=== PATIENT | male | born 1975 | race African-American/Black ===

== ENCOUNTER 2017-06-04 13:43 | Emergency (ER) | payer BC, OTHER ==
[2017-06-04 13:50] VITALS: BMI 28.3
--- NOTE | 2017-06-04 13:57 | PDOC ---
History of Present Illness - General Chief Complaint: Chest Pain Stated Complaint: chest discomfort Time Seen by Provider: 06/04/17 13:55 - History of Present Illness Initial Comments: 06/04/17 14:52 Chief complaint: Respiratory symptoms and body aches History of present illness: For about a week, the patient has had chest congestion, nonproductive cough, and body aches, primarily in the shoulders, anterior and posterior chest, rib cage bilaterally, and back. Review of systems: Denies fever/chills, URI symptoms, sore throat, shortness of breath, abdominal pain, nausea, vomiting, diarrhea, visual or focal neurologic symptoms, unsteadiness of gait, urinary tract symptoms, hematemesis, melena, bloody stool. Admits mild anorexia, although he is eating and drinking. Remainder systems reviewed and found to be negative Past medical history: Hodgkin's lymphoma at age 13, MOPP therapy. Prolonged hospital course, but recovered and in remission since then. Followed at [facility]. Multiple orthopedic surgeries of the left shoulder, both knees, thought to be the result chemotherapy. 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 Smokes cigars and marijuana. No intravenous drugs. No alcohol. No cigarettes. Family history: Reviewed and noncontributory including early coronary artery disease, metabolic disease including diabetes, blood dyscrasias, or cancer Physical exam: Well-developed well-nourished, no acute distress, cheerful and cooperative. Alert and oriented 3 PERRLA, fundi benign, ENT clear Neck supple without bruit mass or nodes Chest clear to P&A, full breath sounds bilaterally, no wheezes rales or rhonchi. No rib cage or chest wall tenderness or deformity CV S1 and S2 distant without murmur rub or gallop pulses full and symmetric no JVD or edema no bruits Abdomen soft nontender without mass or organomegaly Neurological C2 to 12 intact. Strength full and symmetric. No focal sensory or motor deficits. Gait stable and unimpaired. Extremities no CCE Skin clear, no rash, adequate turgor and wet mucous membranes Impression: Most likely viral syndrome/flu. Mild. Rule out pneumonia. Rule out recurrent chest disease from tumor/lymphoma. Rule out occult coronary syndrome. Plan: Chest x-ray, EKG and enzymes, CBC and chemistries, urinalysis, observe. Further treatment depending on results. Past History - Past Medical History Allergies/Adverse Reactions: Allergies Allergy/AdvReac Type Severity Reaction Status Date / Time No Known Allergies Allergy Verified 06/04/17 13:44 Home Medications: Ambulatory Orders NK [No Known Home Medication] 06/04/17 Cancer: Yes (NON HODGKINS LYMPHOMIA) COPD: Yes Disorders: No Liver Disease: No Thyroid Disease: No - Surgical History Appendectomy: Yes Orthopedic Surgery: Yes (BILATERAL ARTHROSCOPY) - Suicide/Smoking/Psychosocial Hx Smoking History: Former smoker Have you smoked in the past 12 months: Yes Number of Cigarettes Smoked Daily: 0 If you are a former smoker, when did you quit?: 15YRS AGO Information on smoking cessation initiated: No 'Breaking Loose' booklet given: 04/01/14 Hx Alcohol Use: No Drug/Substance Use Hx: Yes Substance Use Type: Marijuana *Physical Exam - Vital Signs Last Vital Signs Temp Pulse Resp BP Pulse Ox 0/0 06/04/17 13:44 ED Treatment Course - LABORATORY CBC & Chemistry Diagram: 06/04/17 14:21 06/04/17 14:21 Medical Decision Making - Medical Decision Making 06/04/17 16:09 EKG, chest x-ray, labs including cardiac enzymes are negative Patient appears well, in no distress, nontoxic Probable mild viral syndrome. Rest, Tylenol, and follow-up as needed. *DC/Admit/Observation/Transfer Diagnosis at time of Disposition: Viral syndrome - Discharge Dispostion Disposition: HOME Condition at time of disposition: Stable Admit: No - Referrals Referrals: Dominic Garcia MD [Staff Physician] - - Patient Instructions Printed Discharge Instructions: DI for Viral Syndrome Additional Instructions: Rest, fluids for adequate hydration, good nutrition, adequate sleep. Return to ER for further evaluation if condition worsens, especially if there is fever, vomiting, diarrhea, or difficulty breathing. Otherwise follow-up with primary physician as directed. Start to see a oncologist for routine follow-up. - Post Discharge Activity Forms/Work/School Notes: Back to Work
[2017-06-04 14:10] VITALS: TEMP 98.3
[2017-06-04 14:34] LABS: BASO % 2.3 % (0-2.0); EOS % 7.2 % (0-4.5); HEMATOCRIT 38.8 % (35.4-49); HEMOGLOBIN 13.4 GM/dl (11.7-16.9); LYMPH % 39.4 % (8-40); MCH 31.9 pg (25.7-33.7); MCHC 34.5 g/dl (32.0-35.9); MEAN CELL VOLUME 92.3 fl (80-96); MEAN PLT VOLUME 6.4 fl (7.5-11.1); MONO % 6.4 % (3.8-10.2); NEUT % 44.7 % (42.8-82.8); PLATELET COUNT 333 K/MM3 (134-434); RDW 12.9 % (11.9-15.9); WHITE BLOOD COUNT 4.8 K/mm3 (4.0-10.8)
[2017-06-04 14:47] LABS: ALBUMIN 3.9 g/dl (3.5-5.0); ALK PHOS 86 U/L (32-92); ANION GAP 3 (8-16); BLOOD UREA NITROGEN 17 mg/dl (7-18); CALCIUM 8.7 mg/dl (8.4-10.2); CHLORIDE 106 mmol/L (98-107); CO2 24 mmol/L (22-28); CREATININE 0.9 mg/dl (0.6-1.3); GLUCOSE,RANDOM 87 mg/dl (74-106); POTASSIUM 4.1 mmol/L (3.5-5.1); SGOT/AST 31 U/L (10-42); SGPT/ALT 25 U/L (10-40); SODIUM 133 mmol/L (136-145); TOT PROT 6.5 g/dl (6.4-8.3)
[2017-06-04 15:17] LABS: BILIRUBIN,TOTAL < 0.5 mg/dl (0.2-1.0)
[2017-06-04 15:47] VITALS: BP 128/88; PULSE 66
--- NOTE | 2017-06-05 12:58 | EKG ---
Test Reason : Blood Pressure : / mmHG Vent. Rate : 067 BPM Atrial Rate : 067 BPM P-R Int : 176 ms QRS Dur : 084 ms QT Int : 390 ms P-R-T Axes : 058 071 044 degrees QTc Int : 412 ms NORMAL SINUS RHYTHM MINIMAL VOLTAGE CRITERIA FOR LVH, MAY BE NORMAL VARIANT BORDERLINE ECG WHEN COMPARED WITH ECG OF 12-SEP-2015 10:39, NO SIGNIFICANT CHANGE WAS FOUND Confirmed by KEILA ZUNIGA MD ([id number]) on 06/05/2017 12:58:01 PM Referred By: MCKINLEY LOPEZ Confirmed By:KEILA ZUNIGA MD
== END 2017-06-04 16:15 | disposition home or self-care (01) ==
LOC: FER 13:43
DX: B34.9 Viral infection, unspecified (principal); C85.90 Non-Hodgkin lymphoma, unspecified, unspecified site; Z87.891 Personal history of nicotine dependence; J44.9 Chronic obstructive pulmonary disease, unspecified
CPT/HCPCS: 36415; 71045-TC-FY; 80053; 82550; 82553; 84484; 85025; 93005; 99285-25

== ENCOUNTER 2018-04-22 08:02 | Emergency (ER) | payer BC, OTHER ==
[2018-04-22 08:11] VITALS: BP 110/66; PULSE 95; TEMP 98.6; BMI 26.4
--- NOTE | 2018-04-22 08:18 | PDOC ---
History of Present Illness - General Chief Complaint: Cold Symptoms Stated Complaint: COLD SYMPTOMS Time Seen by Provider: 04/22/18 08:17 History Source: Patient Exam Limitations: No Limitations - History of Present Illness Initial Comments: 04/22/18 08:42 Pt is a 42 y/o M who presents to the ED with three days of body aches, cough, sore throat, and nausea. Pt states that on Friday he felt like he had a fever and that it was painful to swallow. He was using some over the counter medicine (cannot remember the name) with some relief. Has not taken Tylenol or Motrin today. Denies SOB, difficulty breathing, chest pain, vomiting, diarrhea. Past History - Travel Traveled outside of the country in the last 30 days: No Close contact w/someone who was outside of country & ill: No - Past Medical History Allergies/Adverse Reactions: Allergies Allergy/AdvReac Type Severity Reaction Status Date / Time No Known Allergies Allergy Verified 04/22/18 08:29 Home Medications: Ambulatory Orders Ibuprofen 800 mg PO TID #30 tablet 04/22/18 Ondansetron [Zofran Odt -] 4 mg SL TID #10 od.tablet 04/22/18 Cancer: Yes (NON HODGKINS LYMPHOMIA) COPD: Yes Disorders: No Liver Disease: No Thyroid Disease: No - Surgical History Appendectomy: Yes Orthopedic Surgery: Yes (BILATERAL ARTHROSCOPY) - Immunization History Immunization Up to Date: No - Suicide/Smoking/Psychosocial Hx Smoking History: Never smoked Have you smoked in the past 12 months: No Number of Cigarettes Smoked Daily: 0 If you are a former smoker, when did you quit?: 15YRS AGO Information on smoking cessation initiated: No 'Breaking Loose' booklet given: 04/01/14 Hx Alcohol Use: No Drug/Substance Use Hx: Yes Substance Use Type: Marijuana Review of Systems - Review of Systems Able to Perform ROS?: Yes Comments:: 04/22/18 08:18 CONSTITUTIONAL: Present: Fever, chills, body aches Absent: diaphoresis, generalized weakness, malaise, loss of appetite HEENT: Present: rhinorrhea, nasal congestion, throat pain. Absent: difficulty swallowing, mouth swelling, ear pain, eye pain, visual Changes CARDIOVASCULAR: Absent: chest pain, loss of consciousness, palpitations, irregular heart rate, peripheral edema RESPIRATORY: Present: Cough Absent: shortness of breath, dyspnea with exertion, orthopnea, wheezing, stridor, hemoptysis GASTROINTESTINAL: Present: nausea Absent: abdominal pain, abdominal distension, nausea, vomiting, diarrhea, constipation, melena, hematochezia SKIN: Absent: rash, itching, pallor NEUROLOGIC: Absent: headache, focal weakness or paresthesias, dizziness, unsteady gait, seizure, mental status changes, bladder or bowel incontinence Is the patient limited Uzbek proficient: No *Physical Exam - Vital Signs Last Vital Signs Temp Pulse Resp BP Pulse Ox 98.6 F 95 H 18 110/66 99 04/22/18 08:08 04/22/18 08:08 04/22/18 08:08 04/22/18 08:08 04/22/18 08:08 - Physical Exam Comments: 04/22/18 08:18 GENERAL: Well developed, well nourished. Awake and alert. No acute distress. HEENT: Normocephalic, atraumatic. PERRLA, EOMI. No conjunctival pallor. Sclera are non- icteric. Moist mucous membranes. Oropharynx is clear. NECK: Supple. Full ROM. No JVD. Carotid pulses 2+ and symmetric, without bruits. No thyromegaly. No lymphadenopathy. CARDIOVASCULAR: Regular rate and rhythm. No murmurs, rubs, or gallops. Distal pulses are 2+ and symmetric. PULMONARY: No evidence of respiratory distress. Lungs clear to auscultation bilaterally. No wheezing, rales or rhonchi. ABDOMINAL: Soft. Non-tender. Non-distended. No rebound or guarding. No organomegaly. Normoactive bowel sounds. MUSCULOSKELETAL Normal range of motion at all joints. No bony deformities or tenderness. No CVA tenderness. EXTREMITIES: No cyanosis. No clubbing. No edema. No calf tenderness. SKIN: Warm and dry. Normal capillary refill. No rashes. No jaundice. NEUROLOGICAL: Alert, awake, appropriate. Cranial nerves 2-12 intact. No deficits to light touch and temperature in face, upper extremities and lower extremities. No motor deficits in the in face, upper extremities and lower extremities. Normoreflexic in the upper and lower extremities. Normal speech. Toes are down- going bilaterally. Gait is normal without ataxia. PSYCHIATRIC: Cooperative. Good eye contact. Appropriate mood and affect. Moderate Sedation - Procedure Monitoring Vital Signs: Procedure Monitoring Vital Signs Temperature 98.6 F 04/22/18 08:08 Pulse Rate 95 H 04/22/18 08:08 Respiratory Rate 18 04/22/18 08:08 Blood Pressure 110/66 04/22/18 08:08 O2 Sat by Pulse Oximetry (%) 99 04/22/18 08:08 Medical Decision Making - Medical Decision Making 04/22/18 09:22 Pt is a 42 y/o M who presents to the ED with 3 days of cold like symptoms -On exam, minimal erythema posteriorly -Given sore throat, reported fevers, and nausea, rapid strep ordered; and negative -Most likely a URI -DC home with supportive treatment -I discussed the physical exam findings, ancillary test results and final diagnoses with the patient. I answered all of the patient's questions. The patient was satisfied with the care received and felt comfortable with the discharge plan and treatment plan. The Patient agrees to follow up with the primary care physician/specialist within 24-72 hours. Return precautions were given. *DC/Admit/Observation/Transfer Diagnosis at time of Disposition: Viral syndrome - Discharge Dispostion Disposition: HOME Condition at time of disposition: Stable - Referrals Referrals: Lit Locke MD [Primary Care Provider] - - Patient Instructions Printed Discharge Instructions: DI for Viral Upper Respiratory Infection -- Adult Additional Instructions: You have an upper respiratory infection, or the common cold. Your strep testing was negative today. Please take Motrin 800 mg every 8 hours as needed for pain not to exceed 3000 mg a day. Drink plenty of fluids. Cough drops and warm tea may help your symptoms as well. Please follow up with her primary care doctor this week. Return to the emergency department if you have difficulty breathing, shortness of breath, worsening pain, nausea, vomiting or if you have any changes in your symptoms. - Post Discharge Activity Forms/Work/School Notes: Back to Work
[2018-04-22] MEDS ORDERED: ONDANSETRON *ODT* 4 MG TABLET SL ONE (08:42)
[2018-04-22] MEDS ORDERED: IBUPROFEN 400 MG TABLET (FP) PO ONE ×2 (08:42→08:51)
[2018-04-22] MEDS ORDERED: ONDANSETRON *ODT* 4 MG TABLET ONE (08:51)
== END 2018-04-22 09:28 | disposition home or self-care (01) ==
LOC: JERFT 08:02
DX: B34.9 Viral infection, unspecified (principal); Z87.891 Personal history of nicotine dependence; J44.9 Chronic obstructive pulmonary disease, unspecified
CPT/HCPCS: 87070; 87880; 99281-25; Q0162

== ENCOUNTER 2018-07-31 00:31 | Emergency (ER) | payer SELFPAY ==
[2018-07-31 00:48] VITALS: BP 134/96; PULSE 74; TEMP 98; BMI 26.4
[2018-07-31] MEDS ORDERED: DIPHTH,PERTUSS(ACELL),TET 0.5 ML DISP.SYRIN IM ONE ×2 (00:56→01:03)
[2018-07-31] MEDS ORDERED: IBUPROFEN 600 MG TABLET (FP) PO ONE ×2 (00:56→01:03)
--- NOTE | 2018-07-31 01:01 | PDOC ---
History of Present Illness - General Chief Complaint: Pain Stated Complaint: JAW PAIN/BACK STIFNESS Time Seen by Provider: 07/31/18 00:55 History Source: Patient Exam Limitations: No Limitations - History of Present Illness Initial Comments: 07/31/18 00:57 This is a 43-year-old male who comes in complaining of pain in his left jaw. Patient had injured himself several months ago when he was moving from 40 [place]. Patient did not get a tetanus shot at this time so was concerned that the pain in his jaw may be tetanus. So patient is here for a tetanus shot as well as to have his jaw evaluated. Patient said that he is jaw popped when he was opening his mouth and now he has pain over the area of the TMJ area patient denies any other complaints. The pain in the jaws only on the left side. Allergies: as per nursing notes Past Medical History: none Social history: Lives with family. No smoking. No alcohol. No illicit drugs. Surgical history: None General: No fevers or chills, no weakness, no weight loss HEENT: No change in vision. No sore throat,. No ear pain, left jaw pain CardioVascular: no chest discomfort. No shortness of breath Respiratory:No cough, or wheezing. Gastrointestinal: no nausea, vomiting, diarrhea or constipation, No rectal bleeding Genitourinary: No dysuria, hematuria, or frequency Musculoskeletal: No joint or muscle pain or swelling Neurologic: No headache, vertigo, dizziness or loss of consciousness Psychiatric: nor depression Skin: No rashes or easy bruising Endocrine: no increased thirst or abnormal weight change Allergic: no skin or latex allergy All other systems reviewed and normal GENERAL: The patient is awake, alert, and fully oriented, in no acute distress. HEAD: Normal with no signs of trauma. JAW: There is tenderness on very. Patient over the left TMJ area. Patient is able to open and close his mouth without the clicking or catching of the TMJ but it is uncomfortable Otherwise there is no evidence of an infection or inflammatory process anywhere else EYES: Pupils equal, round and reactive to light, extraocular movements intact, sclera anicteric, conjunctiva clear. EXTREMITIES:atraumatic, Normal range of motion, no edema. NEUROLOGICAL: Normal speech, normal gait. PSYCH: Normal mood, normal affect. SKIN: Warm, Dry, normal turgor, no rashes or lesions noted. Assessment and plan: This is a 43-year-old male with left TMJ pain. Patient was concerned he may be tetanus. Patient was reassured that it is not tetanus he was given a tetanus shot and a ibuprofen and discharged home patient will follow -up with his primary care doctor Past History - Past Medical History Allergies/Adverse Reactions: Allergies Allergy/AdvReac Type Severity Reaction Status Date / Time No Known Allergies Allergy Verified 04/22/18 08:29 Home Medications: Ambulatory Orders NK [No Known Home Medication] 07/31/18 Cancer: Yes (NON HODGKINS LYMPHOMIA) COPD: Yes Disorders: No Liver Disease: No Thyroid Disease: No - Surgical History Appendectomy: Yes Orthopedic Surgery: Yes (BILATERAL ARTHROSCOPY) - Immunization History Immunization Up to Date: No - Suicide/Smoking/Psychosocial Hx Smoking History: Current every day smoker Have you smoked in the past 12 months: Yes Number of Cigarettes Smoked Daily: 0 If you are a former smoker, when did you quit?: 15YRS AGO Information on smoking cessation initiated: Yes 'Breaking Loose' booklet given: 04/01/14 Hx Alcohol Use: No Drug/Substance Use Hx: Yes Substance Use Type: Marijuana *Physical Exam - Vital Signs Last Vital Signs Temp Pulse Resp BP Pulse Ox 98 F 74 16 134/96 100 07/31/18 00:42 07/31/18 00:42 07/31/18 00:42 07/31/18 00:42 07/31/18 00:42 *DC/Admit/Observation/Transfer Diagnosis at time of Disposition: Sprain of left temporomandibular joint Qualifiers: Encounter type: initial encounter Qualified Code(s): S03.42XA - Sprain of jaw, left side, initial encounter - Discharge Dispostion Disposition: HOME Condition at time of disposition: Stable Decision to Admit order: No - Referrals - Patient Instructions Additional Instructions: Take Tylenol or Motrin as needed for pain 3 tablets 3 times a day with food don' t take on an empty stomach. Follow-up with your dentist on Friday if you still have any discomfort. You were updated on your tetanus shot and it is good for 10 years Return to the emergency department immediately with ANY new, persistent or worsening symptoms. Continue any medications as previously prescribed by your physician. You should follow up with your primary doctor as soon as possible regarding today's emergency department visit. . Please make sure your doctor reviews the results of your emergency evaluation. Thank you for coming to the Emergency Department today for your care. It was a pleasure to see you today. Please note that your evaluation is INCOMPLETE until you follow-up with your doctor. - Post Discharge Activity
== END 2018-07-31 01:11 | disposition home or self-care (01) ==
LOC: FER 00:31
PROC: 3E0234Z Introduction of Serum, Toxoid and Vaccine into Muscle, Percutaneous Approach (ICD-10-PCS; principal; 2018-07-31)
DX: S03.42XA Sprain of jaw, left side, initial encounter (principal); X58.XXXA Exposure to other specified factors, initial encounter; Y93.9 Activity, unspecified; Y92.9 Unspecified place or not applicable; F17.210 Nicotine dependence, cigarettes, uncomplicated
CPT/HCPCS: 90715; 99282-25

== ENCOUNTER 2020-04-21 08:31 | Emergency (ER) | payer OTHER ==
[2020-04-21 08:44] VITALS: BP 132/86; PULSE 69; BMI 30.3
== END 2020-04-21 09:21 | disposition home or self-care (01) ==
LOC: JER 08:31
DX: R53.1 Weakness (principal); M25.512 Pain in left shoulder
CPT/HCPCS: 99284-25; C9803; U0003

== ENCOUNTER 2021-02-14 04:45 | Emergency (ER) | payer OTHER ==
[2021-02-14 04:53] VITALS: BP 120/85; PULSE 88; TEMP 98.1; BMI 26.4
[2021-02-14] MEDS ORDERED: IBUPROFEN 400 MG TABLET (FP) PO ONE ×2 (05:10→05:43)
== END 2021-02-14 06:38 | disposition home or self-care (01) ==
LOC: JER 04:45
DX: K08.89 Other specified disorders of teeth and supporting structures (principal)
CPT/HCPCS: 99283-25

== ENCOUNTER 2021-10-07 16:53 | Emergency (ER) | payer OTHER ==
[2021-10-07 17:08] VITALS: TEMP 98.3; BMI 31.7
[2021-10-07 18:33] LABS: BASO % 1.7 % (0-2.0); HEMATOCRIT 39.6 % (35.4-49); HEMOGLOBIN 13.3 GM/dL (11.7-16.9); LYMPH % 40.7 % (8-40); MCH 29.9 pg (25.7-33.7); MCHC 33.7 g/dl (32.0-35.9); MEAN CELL VOLUME 88.8 fl (80-96); MEAN PLT VOLUME 7.1 fl (7.5-11.1); MONO % 12.8 % (3.8-10.2); NEUT % 35.8 % (42.8-82.8); PLATELET COUNT 306 10^3/uL (134-434); RBC 4.46 M/mm3 (4.00-5.60); RDW 14.2 % (11.9-15.9); WHITE BLOOD COUNT 4.4 K/mm3 (4.0-10.0)
[2021-10-07 18:56] LABS: CHLORIDE 104 mmol/L (98-107); SODIUM 135 mmol/L (136-145)
[2021-10-07 18:59] LABS: ALBUMIN 3.5 g/dl (3.4-5.0); CALCIUM 8.8 mg/dL (8.5-10.1)
[2021-10-07 19:00] LABS: BLOOD UREA NITROGEN 13.1 mg/dL (7-18); CO2 26 mmol/L (21-32); GLUCOSE,RANDOM 86 mg/dL (74-106)
[2021-10-07 19:03] LABS: CREATININE 1.1 mg/dL (0.55-1.3); SGOT/AST 86 U/L (15-37)
[2021-10-07 19:04] LABS: BILIRUBIN,TOTAL 0.4 mg/dL (0.2-1); TOT PROT 7.4 g/dl (6.4-8.2)
[2021-10-07 19:05] LABS: ALK PHOS 76 U/L (45-117)
[2021-10-07 19:21] LABS: ANION GAP 5 MMOL/L (8-16); SGPT/ALT 45 U/L (13-61)
[2021-10-07 20:59] LABS: BLOOD UREA NITROGEN 12.9 mg/dL (7-18)
[2021-10-07 21:02] LABS: CREATININE 0.9 mg/dL (0.55-1.3)
[2021-10-07 22:02] VITALS: BP 134/65; PULSE 88
== END 2021-10-07 22:02 | disposition home or self-care (01) ==
LOC: JER 16:53
DX: R07.89 Other chest pain (principal)
CPT/HCPCS: 36415; 71046-TC-FY; 80048; 80053; 84484; 85025; 93005; 93010; 99285-25

== ENCOUNTER 2023-03-24 04:28 | Day surgery (SDC) | payer OTHER ==
[2023-03-20 15:56] VITALS: BMI 27.9
[2023-03-24 09:31] VITALS: TEMP 98.6
[2023-03-24 09:43] VITALS: BP 127/83; PULSE 68; RESP 16
== END 2023-03-24 09:27 | disposition home or self-care (01) ==
LOC: JASU-ENDO 04:28
PROVIDERS: ATTEND Internal Medicine Gastroenterology
PROC: 0DBN8ZX Excision of Sigmoid Colon, Via Natural or Artificial Opening Endoscopic, Diagnostic (ICD-10-PCS; principal; 2023-03-24 08:00)
DX: Z12.11 Encounter for screening for malignant neoplasm of colon (principal); K57.30 Diverticulosis of large intestine without perforation or abscess without bleeding; D12.5 Benign neoplasm of sigmoid colon; K64.8 Other hemorrhoids; Z86.010 Personal history of colon polyps
CPT/HCPCS: 88305-TC

== ENCOUNTER 2023-12-13 11:47 | Inpatient (IN) | payer OTHER ==
[2023-12-13 11:53] VITALS: BMI 28.8
[2023-12-13] MEDS: SODIUM CHLORIDE 1,000 ML IV STA (12:42)
[2023-12-13] MEDS ORDERED: ACETAMINOPHEN INJECTION 100 ML ONE (12:46)
[2023-12-13] MEDS: ACETAMINOPHEN 1000 MG/100 ML BAG IVPB ONE (12:53)
[2023-12-13 12:56] LABS: BASO % 0.8 % (0-2.0); EOS % 0.3 % (0-4.5); HEMATOCRIT 38.1 % (35.4-49); HEMOGLOBIN 12.9 GM/dL (11.7-16.9); LYMPH % 9.9 % (8-40); MCH 31.2 pg (25.7-33.7); MCHC 33.9 g/dl (32.0-35.9); MEAN CELL VOLUME 91.9 fl (80-96); MEAN PLT VOLUME 7.2 fl (7.5-11.1); MONO % 5.8 % (3.8-10.2); NEUT % 83.2 % (42.8-82.8); PLATELET COUNT 265 10^3/uL (134-434); RBC 4.14 M/mm3 (4.00-5.60); RDW 13.7 % (11.9-15.9); WHITE BLOOD COUNT 8.2 K/mm3 (4.0-10.0)
[2023-12-13 13:12] LABS: INR 0.99 (0.83-1.09); PROTHROMBIN TIME (PATIENT) 11.2 SEC (9.7-13.0)
[2023-12-13 13:14] LABS: ACTIVATED PTT 33.4 SECONDS (25.2-36.5)
[2023-12-13 13:22] LABS: POTASSIUM 4.3 mmol/L (3.5-5.1)
[2023-12-13 13:25] LABS: ALBUMIN 3.4 g/dl (3.4-5.0); BLOOD UREA NITROGEN 14.7 mg/dL (7-18); MAGNESIUM 1.8 mg/dL (1.8-2.4)
[2023-12-13 13:28] LABS: CREATININE 1.5 mg/dL (0.55-1.3)
[2023-12-13 13:29] LABS: BILIRUBIN,TOTAL 0.5 mg/dL (0.2-1); TOT PROT 6.2 g/dl (6.4-8.2)
[2023-12-13 13:55] LABS: EPI CELLS 1 /uL (0-25.1); HYALINE CASTS 0 /uL (0-3.1); URINE APPEARANCE CLEAR; URINE BACTERIA 5 /uL (0-1359); URINE BILIRUBIN NEGATIVE (NEGATIVE); URINE COLOR YELLOW; URINE GLUCOSE (UA) NEGATIVE (NEGATIVE); URINE KETONE 1+ (NEGATIVE); URINE LEUK ESTERASE TRACE (NEGATIVE); URINE NITRITE NEGATIVE (NEGATIVE); URINE PROTEIN NEGATIVE (NEGATIVE); URINE RBC 106 /uL (0-23.9); URINE UROBILINOGEN 0.2 mg/dL (0.2-1.0); URINE WBC 14 /uL (0-25.8)
[2023-12-13 14:18] LABS: HIV INTERPRETATION NEGATIVE (NEGATIVE)
[2023-12-13] MEDS: LACTATED RINGERS SOLUTION 1000 ML INFUS.BAG IV ONE (14:45)
[2023-12-13] MEDS ORDERED: morphine SULFATE 4 MG/ML VIAL ONE (15:27)
[2023-12-13] MEDS: morphine CARPU-JECT 4 MG/1 ML DISP.SYRIN IVPUSH ONE (15:33)
[2023-12-13] MEDS ORDERED: TAMSULOSIN HCL 0.4 MG CAP ONE (16:42)
[2023-12-13] MEDS ORDERED: MORPHINE SULFATE 2 MG/ML SYRINGE IVPUSH PRN (16:49)
[2023-12-13] MEDS: TAMSULOSIN HCL 0.4 MG CAP PO ONE (17:06)
[2023-12-13] MEDS: LACTATED RINGERS SOLUTION 1,000 ML IV SCH (17:45)
[2023-12-13] MEDS: ACETAMINOPHEN 325 MG TABLET (FP) PO PRN (18:57)
[2023-12-13] MEDS: ONDANSETRON 4 MG/2 ML VIAL IVPUSH ONE (21:40)
[2023-12-14 08:42] LABS: BASO % 0.5 % (0-2.0); EOS % 0.2 % (0-4.5); HEMATOCRIT 35.6 % (35.4-49); HEMOGLOBIN 12.1 GM/dL (11.7-16.9); MCH 31.7 pg (25.7-33.7); MCHC 33.9 g/dl (32.0-35.9); MEAN CELL VOLUME 93.5 fl (80-96); MEAN PLT VOLUME 7.4 fl (7.5-11.1); MONO % 7.6 % (3.8-10.2); NEUT % 78.7 % (42.8-82.8); PLATELET COUNT 225 10^3/uL (134-434); RBC 3.81 M/mm3 (4.00-5.60); RDW 13.7 % (11.9-15.9); WHITE BLOOD COUNT 8.1 K/mm3 (4.0-10.0)
[2023-12-14] MEDS: TAMSULOSIN HCL 0.4 MG CAP PO SCH (08:42)
[2023-12-14 09:07] LABS: POTASSIUM 3.8 mmol/L (3.5-5.1)
[2023-12-14 09:14] LABS: CALCIUM 8.4 mg/dL (8.5-10.1)
[2023-12-14 09:15] LABS: ALBUMIN 2.9 g/dl (3.4-5.0); BLOOD UREA NITROGEN 12.2 mg/dL (7-18)
[2023-12-14 09:18] LABS: CREATININE 1.4 mg/dL (0.55-1.3)
[2023-12-14 09:20] LABS: BILIRUBIN,TOTAL 0.5 mg/dL (0.2-1); TOT PROT 5.5 g/dl (6.4-8.2)
[2023-12-14] MEDS ORDERED: ACETAMINOPHEN 325 MG TABLET (FP) PO SCH (11:30)
[2023-12-14] MEDS: CYCLOBENZAPRINE HCL 5 MG TABLET PO SCH (11:33)
[2023-12-14] MEDS: LIDOCAINE 5% TOPICAL PATCH TP SCH (11:33)
[2023-12-14] MEDS: ACETAMINOPHEN 1000 MG/100 ML BAG IVPB ONE (11:34)
[2023-12-14] MEDS: ACETAMINOPHEN 325 MG TABLET (FP) PO SCH (22:02)
[2023-12-14] MEDS: LIDOCAINE PATCH REMOVAL MC SCH (22:04)
[2023-12-15] MEDS ORDERED: PROPOFOL 40 ML ONE (08:17)
[2023-12-15] MEDS ORDERED: MIDAZOLAM HCL 2 MG/2 ML SINGLE DOSE VIAL ONE (08:18)
[2023-12-15] MEDS: ceFAZolin SODIUM 1 GM VIAL IVPB ONE ×2 (08:35)
[2023-12-15] MEDS ORDERED: ONDANSETRON 4 MG/2 ML VIAL IVPUSH PRN (09:39)
[2023-12-15] MEDS ORDERED: LACTATED RINGERS SOLUTION 1,000 ML IV SCH (09:45)
[2023-12-15 10:22] VITALS: RESP 18
[2023-12-15] MEDS: LACTATED RINGERS SOLUTION 1,000 ML IV SCH (10:30)
[2023-12-15] MEDS: LIDOCAINE 5% TOPICAL PATCH TP SCH (11:19)
[2023-12-15] MEDS: CYCLOBENZAPRINE HCL 5 MG TABLET PO SCH (11:19)
[2023-12-15] MEDS: ACETAMINOPHEN 325 MG TABLET (FP) PO SCH (14:42)
[2023-12-15 14:59] VITALS: BP 129/79; PULSE 69; TEMP 98.2
[2023-12-15 17:48] LABS: BASO % 0.3 % (0-2.0); HEMATOCRIT 34.4 % (35.4-49); HEMOGLOBIN 11.7 GM/dL (11.7-16.9); LYMPH % 6.3 % (8-40); MCH 31.9 pg (25.7-33.7); MEAN CELL VOLUME 93.7 fl (80-96); MEAN PLT VOLUME 7.4 fl (7.5-11.1); MONO % 2.9 % (3.8-10.2); NEUT % 90.5 % (42.8-82.8); PLATELET COUNT 210 10^3/uL (134-434); RBC 3.67 M/mm3 (4.00-5.60); RDW 13.8 % (11.9-15.9); WHITE BLOOD COUNT 8.9 K/mm3 (4.0-10.0)
[2023-12-15] MEDS ORDERED: LIDOCAINE PATCH REMOVAL MC SCH (22:00)
[2023-12-16] MEDS ORDERED: TAMSULOSIN HCL 0.4 MG CAP PO SCH (08:30)
[2023-12-24 18:11] LABS: CA OXALATE MONOHYDR. 100 % (.); SIZE 3x2 mm (.); WEIGHT 7 mg (.)
== END 2023-12-15 19:45 | disposition home or self-care (01) | DRG 446 ==
LOC: JER 11:47 → JERBED 15:36 → OBSVTOIN 16:49 → J6S 18:09
PROVIDERS: ADMIT Internal Medicine; ATTEND Internal Medicine
PROC: 0TC68ZZ Extirpation of Matter from Right Ureter, Via Natural or Artificial Opening Endoscopic (ICD-10-PCS; principal; 2023-12-15 08:00)
PROC: 0T768DZ Dilation of Right Ureter with Intraluminal Device, Via Natural or Artificial Opening Endoscopic (ICD-10-PCS; 2023-12-15 08:00)
PROC: BT1DZZZ Fluoroscopy of Right Kidney, Ureter and Bladder (ICD-10-PCS; 2023-12-15 08:00)
DX: N13.2 Hydronephrosis with renal and ureteral calculous obstruction (principal); R11.0 Nausea; R10.9 Unspecified abdominal pain; N28.1 Cyst of kidney, acquired
CPT/HCPCS: 36415; 74176-TC; 76000-TC-FY; 76775-TC; 80053; 81003; 82340; 82360; 82570; 83735; 84300; 85025; 85610; 85730; 86803; 87086; 87389; 88300-TC; 93005; 93010; 94760; 99285-25; C1747; C1758; C1769; C2617; G0378; J0131